=== PATIENT | female | born 1970 | race Two or more races ===

== ENCOUNTER 2017-11-07 14:46 | Emergency (ER) | payer SELFPAY ==
[~2017-11-07] VITALS: Ht 160 cm; Wt 59.1 kg
[~2017-11-07 14:46] MED LIST: ATARAX,VISTARIL25 MG PO; BIRTH CONTROL PO; CEFDINIR300 MG PO; CLEOCIN300 MG PO; KENALOG,ARISTOC80 G1 TP; PERCOCET 5/31 TABLET PO
[2017-11-07 16:29] VITALS: BP 104/69
== END 2017-11-07 16:29 | disposition home or self-care (01) ==
LOC: EME 14:46
DX: S93.402A Sprain of unspecified ligament of left ankle, initial encounter (principal); W10.9XXA Fall (on) (from) unspecified stairs and steps, initial encounter; Y92.015 Private garage of single-family (private) house as the place of occurrence of the external cause
CPT/HCPCS: 73610; 99281; 99284